=== PATIENT | female | born 2000 | race African-American/Black ===

== ENCOUNTER 2022-10-25 11:27 | Emergency (ER) | payer OTHER ==
[~2022-10-25] VITALS: Ht 162.6 cm; Wt 136.4 kg
[2022-10-25 11:46] VITALS: TEMP 98.3
[2022-10-25] MEDS ORDERED: KETOROLAC TROMETHAMINE 30 MG/ML VIAL IM ONE (12:30)
[2022-10-25] MEDS ORDERED: CYCL-448 PO (15:31)
[2022-10-25] MEDS ORDERED: LIDO700A15 TP (15:31)
[2022-10-25] MEDS ORDERED: DIAZEPAM 5 MG TABLET PO ONE (16:00)
[2022-10-25 17:15] VITALS: BP 131/78; PULSE 80; RESP 18
== END 2022-10-25 17:30 | disposition home or self-care (01) ==
LOC: EMS 11:36
DX: M54.50 Low back pain, unspecified (principal)
CPT/HCPCS: 99284; 84703; 72100; 96372; J1885; 99285